=== PATIENT | female | born 1990 | race Caucasian/White ===

== ENCOUNTER 2017-11-27 12:19 | Emergency (ER) | payer MEDICAID ==
--- NOTE | 2017-11-27 12:44 | EDM.PDOC ---
ED HPI GENERAL MEDICAL PROBLEM - General Chief Complaint: ENT Problem Stated Complaint: SORE THROAT Time Seen by Provider: 11/27/17 12:34 Source of Information: Reports: Patient History Limitations: Reports: No Limitations - History of Present Illness INITIAL COMMENTS - FREE TEXT/NARRATIVE: 27-year-old female presents for evaluation treatment of sore throat. Patient reports that she had a cough yesterday and woke up with a short throat. Daughter is also ill with similar symptoms. She denies any fevers, nausea, vomiting, headaches, body aches, abdominal pain or diarrhea. She does appreciate that her ears have been sore as well. Reports lymphadenopathy. Patient does have her tonsils out. Patient is approximately 39 weeks . Reports good movement. No abdominal pain or cramping. Patient did not get a flu shot this year. 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: - Past Surgical History HEENT Surgical History: Reports: Adenoidectomy, Tonsillectomy Social & Family History - Family History Family Medical History: Noncontributory - Tobacco Use Smoking Status *Q: Never Smoker - Recreational Drug Use Recreational Drug Use: No ED ROS ENT - Review of Systems Review Of Systems: See Below Constitutional: Denies: Fever HEENT: Reports: Ear Pain (bilateral), Throat Pain Respiratory: Reports: Cough GI/Abdominal: Denies: Abdominal Pain, Diarrhea, Nausea, Vomiting Neurological: Denies: Headache ED EXAM, ENT - Physical Exam Exam: See Below Exam Limited By: No Limitations General Appearance: Alert, WD/WN, No Apparent Distress Ears: Normal External Exam, Normal Canal, Hearing Grossly Normal, Normal TMs Nose: Normal Inspection Mouth/Throat: Normal Inspection, Normal Gums, Normal Lips, Pharyngeal Erythema, Other (tonsils absent) Neck: Normal Inspection. No: Lymphadenopathy (L), Lymphadenopathy (R) Respiratory/Chest: No Respiratory Distress, Lungs Clear, Normal Breath Sounds Cardiovascular: Normal Peripheral Pulses, Regular Rate, Rhythm, No Murmur GI/Abdominal: Other (gravid uterus) Neurological: Alert, Oriented, Normal Cognition Psychiatric: Normal Affect, Normal Mood Skin: Warm, Dry, Normal Color Course - Vital Signs Last Recorded V/S: Last Vital Signs Temp 36.5 C 11/27/17 12:24 Pulse 80 11/27/17 12:24 Resp 18 11/27/17 12:24 BP 118/80 11/27/17 12:24 Pulse Ox 97 11/27/17 12:24 - Orders/Labs/Meds Orders: Active Orders 24 hr Category Date Time Status CULTURE STREP A CONFIRMATION [RM] Stat Lab 11/27/17 12:50 Results STREP SCRN A RAPID W CULT CONF [RM] Stat Lab 11/27/17 12:50 Results - Re-Assessments/Exams Free Text/Narrative Re-Assessment/Exam: 11/27/17 13:50 influenza returned negative rapid strep returned negative. Discussed results with the patient. Follow-up if not better. Return to the ER if symptoms change or worsen. Discharge instructions as documented. Departure - Departure Time of Disposition: 13:52 Disposition: Home, Self-Care 01 Condition: Fair Clinical Impression: Pharyngitis - Discharge Information Instructions: Pharyngitis, [id number] Referrals: Karen Logan, INSULATION INSPECTOR [Primary Care Provider] - Forms: ED Department Discharge Additional Instructions: [id number] Tylenol as needed for pain and fever relief. drink plenty of fluids. Follow-up with your primary care provider if your symptoms do not improve in 1 week. Please return to the ER if your symptoms change or worsen. - My Orders Last 24 Hours: My Active Orders 11/27/17 12:50 CULTURE STREP A CONFIRMATION [RM] Stat STREP SCRN A RAPID W CULT CONF [RM] Stat - Assessment/Plan Last 24 Hours: My Active Orders 11/27/17 12:50 CULTURE STREP A CONFIRMATION [RM] Stat STREP SCRN A RAPID W CULT CONF [RM] Stat
== END 2017-11-27 14:00 | disposition home or self-care (01) ==
LOC: JD.ED 12:19
DX: O99.513 Diseases of the respiratory system complicating pregnancy, third trimester (principal); J02.9 Acute pharyngitis, unspecified; Z88.2 Allergy status to sulfonamides; Z3A.39 39 weeks gestation of pregnancy
CPT/HCPCS: 87081; 87430; 87804; 99282; 99283

== ENCOUNTER 2018-08-12 09:09 | Emergency (ER) | payer MEDICAID ==
[2018-08-12] MEDS ORDERED: Albuterol 0.083% 2.5 MG/3 ML Neb Soln NEB ONE (10:04)
--- NOTE | 2018-08-12 10:42 | EDM.PDOC ---
ED HPI GENERAL MEDICAL PROBLEM - General Chief Complaint: Respiratory Problem Stated Complaint: RESPIRATORY ISSUES Time Seen by Provider: 08/12/18 09:50 Source of Information: Reports: Patient, RN Notes Reviewed - History of Present Illness INITIAL COMMENTS - FREE TEXT/NARRATIVE: 27-year-old female with cough, wheezing. She has had this for several days. She has a hand-held inhaler, has been using that but not getting much relief. Her cough is been nonproductive. Fever or chills. She does have history of asthma. She states she has used a nebulizer in the past, "cannot find it". Has not had to use that for quite a while. 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 Denies: Throat Pain Respiratory: Reports: Shortness of Breath (Mild), Wheezing, Cough (Nonproductive ) Cardiovascular: Reports: Chest Pain (Mild, with coughing) GI/Abdominal: Denies: Abdominal Pain, Diarrhea, Vomiting Musculoskeletal: Reports: No Symptoms Skin: Reports: No Symptoms Neurological: Reports: No Symptoms ED EXAM, GENERAL - Physical Exam Exam: See Below General Appearance: Alert, No Apparent Distress Nose: Normal Inspection Throat/Mouth: Normal Inspection Head: Atraumatic Neck: Supple, Full Range of Motion Respiratory/Chest: Respiratory Distress, Wheezing (Mild tachypnea moderate) Cardiovascular: Regular Rate, Rhythm Back Exam: Normal Inspection Extremities: Normal Inspection, Normal Range of Motion Neurological: Alert, No Motor/Sensory Deficits Skin Exam: Warm, Dry, Normal Color Course - Vital Signs Last Recorded V/S: Last Vital Signs Temp 97.8 F 08/12/18 09:27 Pulse 91 08/12/18 09:27 Resp 20 08/12/18 09:27 BP 123/95 H 08/12/18 09:27 Pulse Ox 95 08/12/18 10:04 - Orders/Labs/Meds Orders: Active Orders 24 hr Category Date Time Status RT Aerosol Therapy [RC] ASDIRECTED Care 08/12/18 10:04 Active Meds: Medications Discontinued Medications Generic Name Dose Route Start Last Admin Trade Name Freq PRN Reason Stop Dose Admin Albuterol 2.5 mg 08/12/18 10:04 08/12/18 10:20 Proventil Neb Soln NEB 08/12/18 10:05 2.5 mg ONETIME ONE Administration Departure - Departure Time of Disposition: 10:38 Disposition: Home, Self-Care 01 Condition: Fair Clinical Impression: Upper respiratory infection Qualifiers: URI type: unspecified viral URI Qualified Code(s): J06.9 - Acute upper respiratory infection, unspecified Asthma Qualifiers: Asthma severity: moderate Asthma persistence: unspecified - Discharge Information Instructions: Upper Respiratory Infection, Adult, [id number] Referrals: Karen Logan LOAN SPECIALIST [Primary Care Provider] - Forms: ED Department Discharge Additional Instructions: Rest, continue current medications. Albuterol nebs every 4-6 hours as needed for more severe wheezing. Prescription for nebulizer with tubing has been provided. Follow-up clinic as needed if symptoms not resolving as expected, return to ED as needed if symptoms worsening in any way. - My Orders Last 24 Hours: My Active Orders 08/12/18 10:04 RT Aerosol Therapy [RC] ASDIRECTED - Assessment/Plan Last 24 Hours: My Active Orders 08/12/18 10:04 RT Aerosol Therapy [RC] ASDIRECTED
== END 2018-08-12 10:50 | disposition home or self-care (01) ==
LOC: JD.ED 09:09
DX: J06.9 Acute upper respiratory infection, unspecified (principal); J45.909 Unspecified asthma, uncomplicated; Z88.2 Allergy status to sulfonamides; Z79.899 Other long term (current) drug therapy
CPT/HCPCS: 94640; 99283; 99283-25